=== PATIENT | male | born 1995 | race Caucasian/White ===

== ENCOUNTER 2017-07-30 11:56 | Emergency (ER) | payer SELFPAY ==
[2017-07-30 11:56] VITALS: BP 159/82; PULSE 75; RESP 15; TEMP 36.2; O2SAT 100; BMI 32.8
--- NOTE | 2017-07-30 11:59 | EKG12_ITS ---
Test Reason : CP Blood Pressure : / mmHG Vent. Rate : 068 BPM Atrial Rate : 068 BPM P-R Int : 152 ms QRS Dur : 100 ms QT Int : 360 ms P-R-T Axes : 048 067 049 degrees QTc Int : 382 ms Normal sinus rhythm Normal ECG Confirmed by SALLY BLACKWELL MD ([id number]), purchasing expeditor KEANU DESHPANDE ([id number] on 08/01/2017 1:34:44 PM Referred By: Confirmed By:SALLY BLACKWELL MD
--- NOTE | 2017-07-30 11:59 | RAD_ITS ---
STUDY: X-RAY CHEST REASON FOR EXAM: Male, 21 years old. Chest pain. TECHNIQUE: PA and lateral views of the chest. COMPARISON: None. FINDINGS: The lungs are clear and expanded. There is no demonstrated pleural abnormality. Normal size heart. Normal mediastinum and david. Normal visualized pulmonary arteries. Normal visualized aortic arch and descending thoracic aorta. Normal visualized thoracic spine. Normal visualized ribs, clavicles, and shoulders. There is no demonstrated abnormality of the visualized soft tissue structures of the upper abdomen. RAD/Chest PA and Lateral IMPRESSION: No acute cardiopulmonary process. Electronically Signed: Evelin Lopez MD at 12:18 EDT Tel , Service support ,
--- NOTE | 2017-07-30 12:03 | NURSING ---
NO OLD EKGS
[2017-07-30 12:57] VITALS: BP 145/74; PULSE 71; RESP 14; O2SAT 98
[2017-07-30 13:23] LABS: Absolute Lymphocyte Count 1.74 X10^3/ul (0.83-4.51); Absolute Neutrophil Count 4.7 X10^3/uL (2.0-7.7); Basophil# 0.01 X10^3/uL; Basophil% 0.1 % (0-1); Eosinophil# 0.25 X10^3/uL; Eosinophils% 3.5 % (0-5); Hemoglobin 15.9 g/dl (13.0-16.5); Lymphocyte # 1.74 X10^3/ul (4.0); Lymphocyte % 24.4 % (19-41); Mean Corp Hgb Conc 35.3 g/gl (32-36); Mean Corpuscular Hgb 30.6 pg (27.0-32.0); Mean Corpuscular Volume 86.5 fL (80-94); Mean Platelet Vol. 10.8 fl (6.2-12.0); Monocyte# 0.39 X10^3/uL; Monocyte% 5.5 % (0-10); Neutrophil # 4.73 X10^3/uL (2.7-7.7); Neutrophil % 66.5 % (47-70); Platelet Count 208 K/mm3 (150-450); RBC Distribution Width CV 12.1 % (11.6-14.6); RBC Distribution Width SD 38.4 fl (35.1-43.9); White Blood Count 7.1 K/mm3 (4.4-11.0)
[2017-07-30 13:24] LABS: POSITIVE COUNT NO; POSITIVE DIFFERENTIAL NO; POSITIVE MORPHOLOGY NO
[2017-07-30 13:44] LABS: Anion Gap 6 (5-15); BUN 11 mg/dL (7-18); BUN/Creat Ratio 13.6 RATIO (10-20); Calcium,Total 9.5 mg/dL (8.5-10.1); Chloride 106 mmol/L (98-107); Creatinine, Serum 0.81 mg/dL (0.70-1.30); EST Glomerular Filtration Rate 129 mL/min (>60); Est Glom Filt Rate - Afr Amer 156 mL/min (>60); Estimated Creatinine Clearance 175.32 ml/min; Glucose 87 mg/dL (74-106); Potassium 3.9 mmol/L (3.5-5.1); Sodium Level 138 mmol/L (136-145)
[2017-07-30 14:13] VITALS: BP 138/74
[2017-07-30 14:14] VITALS: BP 138/74; PULSE 75; RESP 14; O2SAT 98
--- NOTE | 2017-07-30 15:52 | ED.DCSUM_ITS ---
- ER Visit Summary Date of Service: 07/30/17 Chief Complaint: [Chest pain] History of Present Illness: The patient is a 21 M [resents the emergency department with chest pain. He has had it off and on since he was 16 years old. 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 He states that he gets intermittent palpitations. It is usually when he lifts something or goes up steps. Today he was lifting at work and he got tightness in his chest and shortness of breath and felt like he was going to pass out. He has had no recent upper respiratory infections. He went to Dr. Presley's office but they could not see him because he does not have insurance. No PE or DVT risk factors he really just wants to know if he has heart murmur are not] Physical Examination: [] WN WD NAD PERRL EOMI MMM NECK supple and nontender, no masses RRR no murmur rub or gallop, no peripheral edema, symmetric radial pulses CTAB no respiratory distress mild tenderness to palpation of the bilateral anterior chest ABDOMEN is soft and nontender, normal bowel sounds, no distension, no rebound or guarding SKIN is warm and dry no rashes Alert and Oriented x3, CN II-XII in tact, no motor or sensory deficits, gait normal No lymphadenopathy Test Results: [] Emergency Department Course and Treatment: [EKG is sinus at a rate of 68 with no acute ischemic changes or conduction abnormalities. Screening labs are entirely normal. I did suggest that because of his intermittent palpitations and feeling lightheaded he may benefit from a Holter monitor. I did encourage him to follow-up with her primary care physician he was given precautions for which to return. He was given excuse for work for today and tomorrow.] Treatment Plan: [] Disposition: [Discharge] Impression: [1. Chest pain 2.. Palpitations] This note was generated with [employer] dictation software. It may contain incorrect words, spelling, and punctuation that were not noted in review of the chart prior to signing ED Disposition - Plan for ED Patient: Chief Complaint: Chest Pain Referrals: Care Physician,No Primary [Primary Care Provider] -
--- NOTE | 2017-07-30 15:52 | ED.DCSUM_ITS ---
- ER Visit Summary Date of Service: 07/30/17 Chief Complaint: [] History of Present Illness: The patient is a 21 M [] Physical Examination: [] Test Results: [] Emergency Department Course and Treatment: [] Treatment Plan: [] Disposition: [] Impression: [] This note was generated with [employer] dictation software. It may contain incorrect words, spelling, and punctuation that were not noted in review of the chart prior to signing ED Disposition - Plan for ED Patient: Chief Complaint: Chest Pain Referrals: Care Physician,No Primary [Primary Care Provider] -
--- NOTE | 2017-07-30 15:52 | ED.DEP ---
ED Disposition - Plan for ED Patient: Chief Complaint: Chest Pain Instructions: ED Chest Pain Atypical Unkn Cause, ED Palpitations Referrals: Silke Carlos [NON-STAFF] - 3-5 Days
[2017-07-30 15:56] VITALS: BP 122/74; PULSE 70; RESP 14; O2SAT 99
== END 2017-07-30 16:10 | disposition home or self-care (01) ==
PROVIDERS: Emergency Provider Emergency Medicine
DX: R07.9 Chest pain, unspecified (principal); R00.2 Palpitations; R06.00 Dyspnea, unspecified; R42 Dizziness and giddiness; Z72.0 Tobacco use
CPT/HCPCS: 71046; 80048; 84484; 85025; 93005; 99284; A4216